=== PATIENT | female | born 1990 | race Two or more races ===

== ENCOUNTER 2018-11-25 12:40 | Emergency (ER) | payer MEDICAID, OTHER ==
[~2018-11-25] VITALS: Ht 167.6 cm; Wt 77.5 kg
[2018-11-25 12:45] VITALS: BP 140/75
[2018-11-25] MEDS ORDERED: DOXYCYCLINE 100MG CAPSULE PO STA (13:33)
[2018-11-25] MEDS ORDERED: cephalexin 500mg capsule PO ONE (13:35)
[2018-11-25] MEDS ORDERED: ibuprofen tablet 400 MG TABLET PO ONE (13:35)
[2018-11-25] MEDS ORDERED: LIDOcaine 1% w/epiNEPHrine 1:200,000 30ml vial IM ONE (13:35)
[2018-11-25] MEDS ORDERED: TETanus/Pertussis (Acell)/Diphther VAC/PF (Tdap-Adult) 0.5ml syringe IM ONE (13:35)
[2018-11-25] MEDS ORDERED: acetaminophen 325mg tablet PO ONE (13:35)
[2018-11-25] MEDS ORDERED: ondansetron 4mg rapidly disintigrating tab PO ONE (13:35)
[2018-11-25] MEDS ORDERED: bacitracin 15gm ointment TP ONE (13:35)
[2018-11-25] MEDS ORDERED: DOXY100C43 PO (13:40)
[2018-11-25] MEDS ORDERED: CEPH250T PO (13:40)
[2018-11-25] MEDS ORDERED: HYDROcodone/acetaminophen 10/325mg tab PO ONE (14:30)
== END 2018-11-25 14:51 | disposition home or self-care (01) ==
LOC: ER 12:40
DX: L02.412 Cutaneous abscess of left axilla (principal); L03.112 Cellulitis of left axilla; Z79.899 Other long term (current) drug therapy
CPT/HCPCS: 10060; 90471; 90715; 99284; J3490

== ENCOUNTER 2018-12-31 12:22 | Emergency (ER) | payer MEDICAID, OTHER ==
[~2018-12-31] VITALS: Ht 167.6 cm; Wt 75.0 kg
[2018-12-31 12:23] VITALS: BP 119/78
== END 2018-12-31 12:46 | disposition home or self-care (01) ==
LOC: ER 12:22
DX: F15.10 Other stimulant abuse, uncomplicated (principal); Z02.89 Encounter for other administrative examinations; R19.7 Diarrhea, unspecified
CPT/HCPCS: 99281

== ENCOUNTER 2019-03-19 15:45 | Emergency (ER) | payer MEDICAID, OTHER ==
[~2019-03-19] VITALS: Ht 170.2 cm; Wt 72.7 kg
[2019-03-19 15:53] VITALS: BP 135/81
== END 2019-03-19 16:41 | disposition home or self-care (01) ==
LOC: ER 15:46
DX: F15.20 Other stimulant dependence, uncomplicated (principal)
CPT/HCPCS: 99281

== ENCOUNTER 2019-03-22 15:09 | Emergency (ER) | payer SELFPAY ==
[~2019-03-22] VITALS: Ht 170.2 cm; Wt 72.7 kg
[2019-03-22 15:19] VITALS: BP 144/91
[2019-03-22] MEDS ORDERED: MUPI22OI30 TOP (15:22)
== END 2019-03-22 15:31 | disposition home or self-care (01) ==
LOC: ER 15:10
DX: S31.829A Unspecified open wound of left buttock, initial encounter (principal); L02.31 Cutaneous abscess of buttock; L03.317 Cellulitis of buttock; F15.10 Other stimulant abuse, uncomplicated; F17.200 Nicotine dependence, unspecified, uncomplicated; Z59.0 Homelessness; X58.XXXA Exposure to other specified factors, initial encounter; Y93.89 Activity, other specified; Y92.89 Other specified places as the place of occurrence of the external cause; Y99.8 Other external cause status
CPT/HCPCS: 99283

== ENCOUNTER 2021-12-13 20:36 | Emergency (ER) | payer MEDICAID ==
[~2021-12-13] VITALS: Ht 170.2 cm; Wt 57.7 kg
--- NOTE | 2021-12-13 20:45 | NUR ---
DR DO AWARE OF PT. HE WILL PUT IN ATIVAN ORDERS SO PT CAN TAKE A SHOWER AND DECONTAMINATE FROM [employer].
[2021-12-13] MEDS ORDERED: LORazepam 2 mg/ml vial IM ONE (20:50)
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
--- NOTE | 2021-12-13 21:15 | NUR ---
[employer], HAS HELPED PT TAKE A SHOWER OUTSIDE. PT ON A CLEAN GOWN NOW AND BACK IN ROOM.
--- NOTE | 2021-12-13 21:59 | NUR ---
Pt CASE REPORT NUMBERS ARE: [id number]
--- NOTE | 2021-12-13 22:30 | NUR ---
DR DO HAS DISCHARGED PT. HOWEVER PT STILL SLEEPY FROM ATIVAN. SAFE DISCHARGE PLAN UNDERWAY. ROOF TECHNICIAN AWARE.
--- NOTE | 2021-12-14 04:00 | NUR ---
PT HAS STATED THAT SHE DOES NOT FEEL SAFE GOING BACK HOME. PT AGREED TO LET ME CALL [facility] ON HER BEHALF. [facility] CONTACTED; THEY REQUESTED TO SPEAK TO PT. PHONE GIVEN TO PT AND PHONE CALL TRANSFERRED; HOWEVER, PT KEPT FALLING ASLEEP WHILE TALKING TO EQUITY DIRECTOR. EQUITY DIRECTOR CALLED HOSPITAL AND STATED SHE WOULD CALL BACK "IN A COUPLE HOURS" ONCE PT IS MORE AWAKE PT'S CONSENT IS REQUIRED.
--- NOTE | 2021-12-14 05:30 | NUR ---
PT AWAKE AND PULLING SHEET OUT OF THE CABINETS. PT INSTRUCTED NOT TO GO OVER CABINETS. SHE WAS PROVIDED NEW WARM BLANKETS AND WATER.
--- NOTE | 2021-12-14 07:11 | NUR ---
Called [facility] to discharge pt. Pt talking with staff, and willing to accept her services.
--- NOTE | 2021-12-14 07:20 | NUR ---
[facility] made contact with patient and is able to take her in after 8am. Will call and arrange transport shortly. Pt alert and oriented, no apparent distress or needs at this time.
--- NOTE | 2021-12-14 07:32 | NUR ---
No cabs available for a few hours. Will call [facility] shortly to see if they can arrange transport. Pt discharged prior to my arrival.
[2021-12-14 07:45] VITALS: BP 116/80
== END 2021-12-14 08:23 | disposition home or self-care (01) ==
LOC: ER 20:36
DX: T65.893A Toxic effect of other specified substances, assault, initial encounter (principal); S00.83XA Contusion of other part of head, initial encounter; R06.82 Tachypnea, not elsewhere classified; F15.90 Other stimulant use, unspecified, uncomplicated; Z59.00 Homelessness unspecified; Z72.89 Other problems related to lifestyle; Y92.89 Other specified places as the place of occurrence of the external cause
CPT/HCPCS: 70450; 96372; 99284; J2060

== ENCOUNTER 2022-04-13 09:20 | Emergency (ER) | payer MEDICAID ==
[~2022-04-13] VITALS: Ht 170.2 cm; Wt 58.0 kg
[2022-04-13 10:16] VITALS: BP 117/71
[2022-04-13 10:16] LABS: CLARITY,URINE SLIGHTLY CLOUDY (Clear); COLOR,URINE YELLOW (Yellow); GLUCOSE, URINE NEGATIVE (Neg); KETONES,URINE NEGATIVE (Neg); LEUKOCYTE ESTERASE ,URINE SMALL (Neg); NITRITES, URINE NEGATIVE (Neg); OCCULT BLOOD,URINE NEGATIVE (Neg); PROTEIN,URINE TRACE mg/dl (Neg)
[2022-04-13 10:20] LABS: UA COLLECTION TYPE CLN CATCH MIDSTREAM
[2022-04-13] MEDS ORDERED: cefepime 2g/NS 100ml ADVANTAGE 100 ML IV STA (10:24)
[2022-04-13] MEDS ORDERED: normal saline 1000ML IV soln IVB ONE (10:25)
[2022-04-13] MEDS ORDERED: vancomycin/NS 1 GM ADD-VANTAGE 250 ML IV ONE (10:25)
[2022-04-13] MEDS ORDERED: cefepime 2g/NS 100ml ADVANTAGE 100 ML IV ONE (10:28)
[2022-04-13 10:29] LABS: BACTERIA,URINE FEW /HPF (Neg); MUCUS STRANDS FEW /LPF (Neg); RBC,URINE 0-2 /HPF (0-2); SQUAMOUS EPITHELIAL CELL,UR MODERATE /LPF (FEW); TRANSITIONAL EPI CELLS,URINE FEW /HPF; TRICHOMONAS,URINE FEW /HPF (NEGATIVE)
[2022-04-13] MEDS ORDERED: TETanus/Pertussis (Acell)/Diphther VAC/PF (Tdap-Adult) 0.5ml syringe IMVAC ONE (10:35)
[2022-04-13 10:54] LABS: BASOPHILS % (AUTO) 0.2 % (0-1); EOSINOPHILS # (AUTO) 0.4 X10'3 (0-0.9); HEMATOCRIT 33.5 % (35.0-45.0); HEMOGLOBIN 11.2 g/dl (12.0-16.0); LYMPHOCYTES # (AUTO) 1.6 X10'3 (1.1-4.8); LYMPHOCYTES % (AUTO) 14.4 % (21-51); MEAN CORPUSCULAR HEMOGLOBIN 26.8 PG (27.0-31.0); MEAN CORPUSCULAR HGB CONC 33.5 g/dL (33.0-36.5); MEAN CORPUSCULAR VOLUME 80.3 FL (78-98); MEAN PLATELET VOLUME 7.5 FL (7.4-10.4); MONOCYTES # (AUTO) 0.8 X10'3 (0-0.9); MONOCYTES % (AUTO) 7.8 % (2-12); NEUTROPHILS % (AUTO) 73.6 % (42-75); PLATELET COUNT 281 X10'3 (140-440); RED BLOOD COUNT 4.18 X10'6 (4.20-5.60); RED CELL DISTRIBUTION WIDTH 14.9 % (11.5-14.5); WHITE BLOOD COUNT 10.8 X10'3 (4.5-11.0)
[2022-04-13] MEDS ORDERED: LIDOcaine 1% W/epiNEPHrine 1:100,000 20ml vial SQ ONE (10:55)
[2022-04-13 11:08] LABS: ALANINE AMINOTRANSFERASE 27 U/L (12-78); ALBUMIN 3.3 G/DL (3.4-5.0); ALBUMIN/GLOBULIN RATIO 0.8 (1.1-1.5); ALKALINE PHOSPHATASE 115 IU/L (46-116); ANION GAP 8 (8-16); ASPARTATE AMINO TRANSFERASE 19 U/L (10-37); BILIRUBIN,TOTAL 0.2 MG/DL (0.1-1.0); BLOOD UREA NITROGEN 12 MG/DL (7-18); BUN/CREATININE RATIO 17.4 (6.6-38.0); CALCIUM 8.8 MG/DL (8.5-10.1); CHLORIDE 99 MMOL/L (99-107); CREATININE 0.69 MG/DL (0.40-0.90); GLUCOSE 107 MG/DL (70-104); POTASSIUM 3.2 MMOL/L (3.5-5.1); SODIUM 138 MMOL/L (135-145); TOTAL CARBON DIOXIDE 31.1 MMOL/L (24-32); TOTAL PROTEIN 7.5 G/DL (6.4-8.2); eGFR > 90 ML/MIN
--- NOTE | 2022-04-13 11:09 | NUR ---
[facility].PAULA CRUZ SPOKE TO THE PT ,AMJosephine FORMED SIGNED,EXPLAINED THE RISK TO THE PT .
[2022-04-13] MEDS ORDERED: LIDOCAINE 1%/EPI 1:100,000 inj. 10 ML multi-dose vial SQ ONE (11:15)
[2022-04-13] MEDS ORDERED: SULF1TAB49 PO (17:27)
== END 2022-04-13 11:17 | disposition left against medical advice (07) ==
LOC: ER 09:21
DX: L03.113 Cellulitis of right upper limb (principal); F17.200 Nicotine dependence, unspecified, uncomplicated; F15.90 Other stimulant use, unspecified, uncomplicated; F19.90 Other psychoactive substance use, unspecified, uncomplicated; Z72.89 Other problems related to lifestyle; Z60.2 Problems related to living alone; Z59.00 Homelessness unspecified
CPT/HCPCS: 36415; 80053; 81001; 83605; 84145; 85025; 87040; 93005; 96365; 99284; J3370; J7030